=== PATIENT | female | born 1965 | race Caucasian/White ===

== ENCOUNTER 2024-07-26 12:59 | Day surgery (SDC) | payer BC ==
[2024-07-26 14:21] LABS: Glucose,Whole Blood 113 mg/dL (70-110)
[2024-07-26] MEDS: IV FLUID CONTINUATION 1,000 ML IV ONE (14:22)
[2024-07-26] MEDS: SODIUM CHLORIDE 0.9% 1,000 ML IV SCH (14:22)
[2024-07-26 14:31] LABS: Basophils # (A) 0.1 k/uL (0-0.2); Basophils % (A) 1 %; Eosinophils # (A) 0.2 k/uL (0-0.7); Eosinophils % (A) 2 %; HCT 41.9 % (34.0-46.0); Lymphocytes % (A) 31 %; MCH 29.7 pg (25.0-35.0); MCHC 33.5 g/dL (31.0-37.0); MCV 88.5 fL (80.0-100.0); Mean Platelet Volume 8.1; Monocytes # (A) 0.5 k/uL (0-1.0); Monocytes % (A) 5 %; Neutrophils # (A) 5.8 k/uL (1.3-7.7); Neutrophils % (A) 60 %; Platelet Count 401 k/uL (150-450); RBC 4.73 m/uL (3.80-5.40); RDW 12.9 % (11.5-15.5); WBC 9.7 k/uL (3.8-10.6)
[2024-07-26 14:36] LABS: African American GFR (CKD) >90 (>60 ml/min/1.73 sqM); Anion Gap 9 mmol/L; Blood Urea Nitrogen 20 mg/dL (7-17); Calcium 9.7 mg/dL (8.4-10.2); Carbon Dioxide 26 mmol/L (22-30); Chloride 105 mmol/L (98-107); Glucose 120 mg/dL (74-99); Non-African American GFR(CKD) >90 (>60 ml/min/1.73 sqM); Potassium 4.2 mmol/L (3.5-5.1); Sodium 140 mmol/L (137-145)
[2024-07-26] MEDS ORDERED: PROPOFOL 10 MG/ML 20 ML VIAL IV ONE (15:09)
[2024-07-26] MEDS ORDERED: fentaNYL (PF) 50 MCG/ML 2 ML AMP ONE (15:09)
[2024-07-26] MEDS ORDERED: MIDAZOLAM 2 MG/2 ML VIAL ONE (15:09)
[2024-07-26] MEDS ORDERED: PHENYLEPHRINE-0.9% NACL SYG 1,000 MCG/10 ML SYRINGE ONE (15:09)
[2024-07-26] MEDS: IOPAMIDOL-250 100ML BTL IVP ONE (15:20)
--- NOTE | 2024-07-26 15:27 | P.HPCAR ---
History of Present Illness This is Dr. Mendes dictating an H/P on this patient The patient was interviewed and examined IMPRESSION / ASSESSMENT: Nonischemic cardiomyopathy Congestive heart failure class II-III, systolic Chronic systolic heart failure On guideline directed medical treatment Left bundle branch block with a QRS width of 150 ms Nonischemic cardiomyopathy PLAN: Proceed with biventricular ICD implantation Continue heart failure medications and maximize beta-blockers further HPI Patient continues to have symptoms of heart failure class II-III with shortness of breath climbing stairs and now even on flat ground No syncope no palpitation ROS: No fever chills or rigors, no cough, phlegm or expectoration, no nausea, vomiting or diarrhea, no hematuria, dysuria, no musculoskeletal complaints, no strokes or seizures, no skin lesions. EXAMINATION: Pulse rate 75 beats minute afebrile, blood pressure 117/65 mmHg Heart sounds are normal Breath sounds are clear REVIEW OF LABS, ECG & MEDICAL DATA White count 9.7 thousand, hematocrit 41.9, platelet count 401,000 Electrolytes normal, kidney function normal Physical Exam Vitals: Vital Signs Temp Pulse Resp BP Pulse Ox 07/26/24 14:19 97.9 F 75 18 117/65 99 Intake and Output 07/26/24 07/26/24 07/26/24 06:59 14:59 22:59 Other: Weight 66.3 kg Past Medical History Past Medical History: Chest Pain / Angina, Heart Failure, Diabetes Mellitus, GERD/Reflux, Hyperlipidemia, Myocardial Infarction (SD) Additional Past Medical History / Comment(s): See Dr. Mendes's H+P, Type II NID DM. "From testing I've had doen they tell me I'v had a heart attack.""But they don't know the date of heart attack.". Kidney stones. Last Myocardial Infarction Date:: unknown History of Any Multi-Drug Resistant Organisms: None Reported Past Surgical History: Section, Cholecystectomy, Heart Catheterization, Orthopedic Surgery, Tonsillectomy Additional Past Surgical History / Comment(s): x2. Neck surgery with disc removal. Partial hysterectomy. Additional Past Anesthesia/Blood Transfusion Reaction / Comment(s): "My mom said as a child I had a hard time coming out of anethesia and hard time breathing." No hx of blood transfusion to date. Smoking Status: Former smoker - Past Family History Mother Additional Family Medical History / Comment(s): Cirrhosis of liver Father Family Medical History: Diabetes Mellitus, Myocardial Infarction (SD) Additional Family Medical History / Comment(s): CABG Physical Examination Vital Signs Temp Pulse Resp BP Pulse Ox 07/26/24 14:19 97.9 F 75 18 117/65 99 Intake and Output 07/26/24 07/26/24 07/26/24 06:59 14:59 22:59 Other: Weight 66.3 kg Results 07/26/24 14:00 07/26/24 14:00 CBC 07/26/24 Range/Units 14:00 WBC 9.7 (3.8-10.6) k/uL RBC 4.73 (3.80-5.40) m/uL Hgb 14.0 (11.4-16.0) gm/dL Hct 41.9 (34.0-46.0) % Plt Count 401 (150-450) k/uL Comprehensive Metabolic Panel 07/26/24 Range/Units 14:00 Sodium 140 (137-145) mmol/L Potassium 4.2 (3.5-5.1) mmol/L Chloride 105 (98-107) mmol/L Carbon Dioxide 26 (22-30) mmol/L BUN 20 H (7-17) mg/dL Creatinine 0.64 (0.52-1.04) mg/dL Glucose 120 H (74-99) mg/dL Calcium 9.7 (8.4-10.2) mg/dL Current Medications Generic Name Dose Route Start Last Admin Trade Name Freq PRN Reason Stop Dose Admin Sodium Chloride 1,000 mls @ 50 mls/hr 07/26/24 06:03 07/26/24 14:22 Saline 0.9% IV 08/25/24 06:02 50 mls/hr .Q20H GRACIELA Administration Sodium Chloride 1,000 mls @ 50 mls/hr 07/26/24 06:03 Saline 0.9% IV 08/25/24 06:02 .Q20H GRACIELA Cefazolin Sodium 2 gm/ Sodium 50 mls @ 100 mls/hr 07/26/24 07:00 Chloride IVPB 07/27/24 06:59 ONCE PRN Pre-Op Cefazolin Sodium 1 gm/ Sodium 250 mls @ 250 mls/hr 07/26/24 06:03 Chloride IRRIGATION 07/27/24 06:02 ONCE PRN PRE-OP Intake and Output 07/26/24 07/26/24 07/26/24 06:59 14:59 22:59 Other: Weight 66.3 kg Patient Weight 07/27/24 06:59 Weight 66.3 kg 07/26/24 14:00 07/26/24 14:00
[2024-07-26] MEDS: ceFAZolin 1 GM in SODIUM CHLORIDE 0.9% IRRIG BTL 250 ML IRRIGATION PRN (15:37)
[2024-07-26] MEDS: LIDOCAINE 1% INJ 10MG/ML (20 ML MDV) SQ ONE ×2 (15:41→15:55)
[2024-07-26] MEDS: ROPIVACAINE 5 MG/ML 30 ML VIAL MISCELLANE ONE (15:44)
[2024-07-26] MEDS ORDERED: ALPRAZolam 0.25 MG TAB PO PRN (17:39)
--- NOTE | 2024-07-26 17:56 | P.EPPROC ---
- EP Procedure Note Electrophysiology Procedure Note: Diagnosis Cardiomyopathy, chronic, nonischemic Congestive heart failure [place] [employer] class, class II-III Wide QRS, left bundle branch block pattern, QRS width 150 ms On guide line directed medical treatment for greater than 3 months Procedure: Biventricular ICD implantation for management of risk of sudden cardiac and congestive heart failure Result: Successful biventricular ICD implantation, Atrial lead: Mcclellan, pacing threshold 0.9 V at 0.5 ms, P waves greater than 5 mV and pacing impedance 690 ohms RV ICD lead: Mcclellan, pacing threshold 0.9 V at 0.5 ms R waves greater than 12 mV and pacing impedance 780 ohms Left ventricular lead: Anterolateral vein, excellent position. No diaphragmatic stimulation along this vein but high thresholds all throughout the vein. Best threshold M2-P4 and D1-coil. Pacing threshold M2-P4 is 3 V at 0.5 ms, pace impedance 880 ohms High-voltage impedance 74 ohms Procedure details: Patient was brought to the EP lab in a fasting state. Written informed consent was obtained prior to the procedure. Options, pros and cons, benefits and risks and complications discussed with patient in detail prior to the procedure (shared decision making) previously. Importance of continuing medical treatment emphasized previously. Alternatives discussed previously. Left upper extremity venogram performed. 15 mL IV dye injected in the left arm. Patent axillary/subclavian vein The left pectoral area was prepped and draped as a protocol. IV antibiotics administered 1% lidocaine was used for local anesthesia. A 4 cm incision was made parallel to the deltopectoral groove, about 1.5 cm medial to it. The incision was carried down to the level of the pectoralis muscle and the subfascial pocket was made. Hemostasis was assured. The axillary vein access was obtained. Appropriately sized into to see sheaths were placed. ICD lead implanted in the right ventricle septum and screwed in. ICD lead tested for threshold, sensing, impedances and tested with high output pacing for diaphragmatic stimulation. Negative diaphragmatic stimulation Atrial lead placed in the right atrial appendage and tested for threshold, sensing, impedance, and tested with high output pacing. Phrenic nerve stimulation negative Coronary sinus/left ventricular epicardial lead placement in the anterior lateral vein. Final distal lead position along the lateral wall and excellent position Leads secured to the underlying pectoral muscle after removing sheaths . Pocket irrigated with antibiotic solution. Antibiotic pouch placed Leads connected to the biventricular ICD generator. Wound closed in 3 layers and dressed per protocol Biventricular ICD interrogated and programmed. Appropriate pacing parameters, antitachycardia therapies with antitachycardia pacing cardioversion defibrillations programmed. AV delay and biventricular pacing parameters programmed to achieve optimal physiologic pacing AV delay 140 ms paced LV offset -55 ms Patient tolerated the procedure well without any acute complications. See scanned device report in EMR for lead details
[2024-07-26] MEDS: ACETAMINOPHEN IV (For NPO) 1,000 MG in EMPTY BAG 1 BAG IVPB ONE (19:48)
[2024-07-26] MEDS: NON FORMULARY DRUG (Tirzepatide [Mounjaro] 5 MG/0.5 ML Pen.Injctr) SQ SCH (19:49)
[2024-07-26] MEDS: GABAPENTIN 300 MG CAP PO SCH (20:03)
[2024-07-26] MEDS: ACETAMINOPHEN TAB 325 MG TAB PO PRN (20:03)
[2024-07-26] MEDS: SACUBITRIL/VALSARTAN 49 MG-51 MG TABLET PO SCH (20:03)
[2024-07-26] MEDS: ATORVASTATIN 20 MG TAB PO SCH (20:03)
[2024-07-27 03:51] VITALS: TEMP 98.4
[2024-07-27] MEDS: PANTOPRAZOLE 40 MG TABLET PO SCH (06:36)
[2024-07-27 07:53] VITALS: BP 106/66; PULSE 69; RESP 16
[2024-07-27] MEDS: SODIUM CHLORIDE 0.9% 1,000 ML IV SCH (08:08)
--- NOTE | 2024-07-27 08:51 | XR ---
EXAMINATION TYPE: XR chest 2V DATE OF EXAM: 07/27/2024 8:40 AM COMPARISON: None CLINICAL INDICATION: Female, 59 years old with history of Lead placement check, , TECHNIQUE: Frontal and lateral views FINDINGS: Left anterior chest wall AICD generator with right atrial, right ventricular, and coronary sinus lead s. Heart normal size. Mild interstitial prominence may be technical due to patient body habitus. No a ppreciable pneumothorax. No consolidation or pleural effusion. IMPRESSION: Left anterior chest wall AICD generator with right atrial, right ventricular, and coronary sinus lead s. No acute process seen. [facility], Workstation: [facility], 07/27/2024 8:49 AM
[2024-07-27] MEDS: SPIRONOLACTONE 25 MG TAB PO SCH (09:17)
[2024-07-27] MEDS: METOPROLOL SUCCINATE (ER) 50 MG TAB.ER.24H PO SCH (09:17)
[2024-07-27] MEDS: DAPAGLIFLOZIN PROPANEDIOL 10 MG TABLET PO SCH (09:17)
[2024-07-27] MEDS: FLUoxetine HCL 20 MG CAP PO SCH (09:17)
--- NOTE | 2024-07-27 16:00 | P.DS ---
Providers Attending physician: Omar Mendes [facility] Course: Patient is doing well. No chest discomfort dizziness lightheadedness or palpitations The ICD site is healed well no hematoma no swelling no soakage On examination blood pressure 106/66 mmHg pulse rate in the 60s and 70s afebrile Heart sounds are normal Breath sounds are clear Chest x-ray no pneumothorax. Leads in stable position LV lead in the anterolateral vein with the distal poles very lateral and posterior Impression Nonischemic cardiomyopathy with class II CHF and left bundle branch block with a QRS width 150 ms Twelve-lead EKG shows biventricular paced rhythm While the coronary veins had excellent caliber and lead placement was fairly straightforward, the thresholds in the lateral vein were relatively high. Yesterday the best threshold obtained was 3 V at 0.5 ms Today there was an improvement in LV threshold of 2.5 V at 0.5 ms Device interrogation within normal limits Assiduous biventricular ICD was implanted and is functioning normally Plan discharge home today Follow-up in the office with Dr. Choi Increase metoprolol succinate to 50 mg p.o. daily Plan - Discharge Summary Discharge Rx Participant: No New Discharge Prescriptions: New Metoprolol Succinate [Toprol XL] 50 mg PO DAILY #90 tab Discontinued Metoprolol Succinate (ER) [Toprol Xl] 25 mg PO QAM No Action Tirzepatide [Mounjaro] 5 mg SQ MO Gabapentin [Neurontin] 300 mg PO BID FLUoxetine HCL [PROzac] 40 mg PO QAM ALPRAZolam [Xanax] 0.25 mg PO QAM PRN PRN Reason: Anxiety Omeprazole [PriLOSEC] 20 mg PO AC-BRKFST Vit B6(Unknown Dose) 1 tab PO HS PRN PRN Reason: sleep metFORMIN HCL [Glucophage] 850 mg PO BID Spironolactone [Aldactone] 25 mg PO QAM Sacubitril/Valsartan [Entresto 49 mg-51 mg Tablet] 1 tab PO BID Rosuvastatin [Crestor] 1 tab PO MOWEFR Dapagliflozin Propanediol [Farxiga] 1 tab PO QAM Discharge Medication List ALPRAZolam [Xanax] 0.25 mg PO QAM PRN 07/20/24 [History] Dapagliflozin Propanediol [Farxiga] 1 tab PO QAM 07/20/24 [History] FLUoxetine HCL [PROzac] 40 mg PO QAM 07/20/24 [History] Gabapentin [Neurontin] 300 mg PO BID 07/20/24 [History] Omeprazole [PriLOSEC] 20 mg PO AC-BRKFST 07/20/24 [History] Rosuvastatin [Crestor] 1 tab PO MOWEFR 07/20/24 [History] Sacubitril/Valsartan [Entresto 49 mg-51 mg Tablet] 1 tab PO BID 07/20/24 [History] Spironolactone [Aldactone] 25 mg PO QAM 07/20/24 [History] Tirzepatide [Mounjaro] 5 mg SQ MO 07/20/24 [History] Vit B6(Unknown Dose) 1 tab PO HS PRN 07/20/24 [History] metFORMIN HCL [Glucophage] 850 mg PO BID 07/20/24 [History] Metoprolol Succinate [Toprol XL] 50 mg PO DAILY #90 tab 07/26/24 [Rx] Follow up Appointment(s)/Referral(s): Soheila Choi MD [STAFF PHYSICIAN] - 08/02/24 4:00 pm Patient Instructions/Handouts: Pacemaker (DC) Activity/Diet/Wound Care/Special Instructions: PATIENT EDUCATION MATERIAL Instructions following a heart rhythm device implant. 1. Keep dressing DRY for 5 DAYS. You may cover the area with Saran or Cling Wrap, prior to a shower. 2. The dressing will be removed in the Device Clinic at [facility]. Absorbable sutures were used to close the wound. 3. Avoid raising the left arm above the shoulder level. 4 week restriction 4. Avoid arm movements, like backscratching, rubbing the head, or pulling on a cord. 4 weeks restriction 5. Gentle range of motion movements of the shoulder, closest to the incision should be performed to avoid a frozen shoulder. (Pendulum exercises of the shoulder) 6. The opposite arm may be used freely. 7. Avoid driving for 7 days. 8. Avoid activities such as golfing, swimming, weed whacking, lifting more than 10 pounds weight, bowling, gymnastics and weight training/lifting. (6 weeks restriction) 9. Activities such as wood chopping with an axe, pull-ups in the gymnasium, power lifting, arc-welding, being close to home induction cooktops will always be a problem. 10. Arm sling is only a reminder not to raise the arm above the head. You do not need to keep the arm completely immobilized. Your free to move the arm and use it and for normal activities. In case of any problems, please call [facility] [place], @ [phone], Attention: Device Clinic Device clinic follow-up in 5 days Follow-up with primary clinical faculty in 2-3 months Discharge Disposition: HOME SELF-CARE
[2024-07-28] MEDS ORDERED: metFORMIN 850 MG TAB PO SCH (07:30)
== END 2024-07-27 11:32 | disposition home or self-care (01) ==
LOC: CATHEP 12:59 → 6NMEDSUR 17:25 → CATHEP 07-27 11:32
PROVIDERS: ATTEND Internal Medicine Clinical Cardiac Electrophysiology
DX: I25.10 Atherosclerotic heart disease of native coronary artery without angina pectoris (principal); I50.22 Chronic systolic (congestive) heart failure; E11.9 Type 2 diabetes mellitus without complications; E78.5 Hyperlipidemia, unspecified; K21.9 Gastro-esophageal reflux disease without esophagitis; N20.0 Calculus of kidney; I25.2 Old myocardial infarction; Z87.442 Personal history of urinary calculi; Z45.02 Encounter for adjustment and management of automatic implantable cardiac defibrillator; Z90.89 Acquired absence of other organs; Z90.49 Acquired absence of other specified parts of digestive tract; Z87.891 Personal history of nicotine dependence; Z83.79 Family history of other diseases of the digestive system; Z83.3 Family history of diabetes mellitus; Z82.49 Family history of ischemic heart disease and other diseases of the circulatory system; Z79.82 Long term (current) use of aspirin; Z88.2 Allergy status to sulfonamides; L23.1 Allergic contact dermatitis due to adhesives; Z88.8 Allergy status to other drugs, medicaments and biological substances; Z79.899 Other long term (current) drug therapy
CPT/HCPCS: 33249; 33225; 80048; 85025; 71046; C1769 ×4; C1882; C1898; C1892 ×2; C1730; C1887; C1900; C1777; J2250; J0690 ×2; J2003; J3010; J2795; J2704; Q9966; J2371

== ENCOUNTER 2024-10-21 07:25 | Day surgery (SDC) | payer BC ==
[2024-10-18 11:44] VITALS: BMI 27.3
[2024-10-21 07:54] LABS: Glucose,Whole Blood 151 mg/dL (70-110)
[2024-10-21 08:06] VITALS: RESP 16; TEMP 97.8
[2024-10-21] MEDS: SODIUM CHLORIDE 0.9% 1,000 ML IV SCH (08:07)
[2024-10-21 08:10] LABS: African American GFR (CKD) >90 (>60 ml/min/1.73 sqM); Anion Gap 12 mmol/L; Blood Urea Nitrogen 20 mg/dL (7-17); Calcium 9.7 mg/dL (8.4-10.2); Carbon Dioxide 22 mmol/L (22-30); Chloride 101 mmol/L (98-107); Glucose 167 mg/dL (74-99); Non-African American GFR(CKD) >90 (>60 ml/min/1.73 sqM); Potassium 4.2 mmol/L (3.5-5.1); Sodium 135 mmol/L (137-145)
[2024-10-21] MEDS ORDERED: LIDOCAINE 1% INJ 10MG/ML (20 ML MDV) ONE (09:27)
[2024-10-21] MEDS ORDERED: PROPOFOL 10 MG/ML 20 ML VIAL IV ONE (09:27)
[2024-10-21] MEDS: IV FLUID CONTINUATION 400 ML IV ONE (09:31)
--- NOTE | 2024-10-21 10:10 | P.EPPROC ---
- EP Procedure Note Electrophysiology Procedure Note: Indication: Nonischemic cardiomyopathy status post BiV ICD implant, [place] heart failure, Mcclellan device Final diagnosis Biventricular ICD functioning normally, LV offset 55 ms Mildly chronically elevated LV, thresholds but improved since implant Defibrillation successful with 10 J, anode, high-voltage impedance 69 ohms, charge time 1.8 seconds Details Under conscious sedation the Mcclellan [place] heart failure biventricular ICD was interrogated Atrial pacing threshold 0.5 V at 0.5 ms, R waves greater than 5 mV, pace impedance 510 ohms RV pacing threshold 0.5 V at 0.5 ms, R waves greater than 12 mV and pace impedance 790 ohms LV threshold improved to 2.2 V at 0.5 ms, M2-P4, pacing impedance 940 ohms High-voltage impedance 69 ohms Ventricular fibrillation induced, detected with 8 dropouts intermittently, successfully internally defibrillated with a 10 J shock, anode Charge time 1.8 seconds High-voltage impedance 69 ohms Device reprogrammed, first cardioversion 20 J first defibrillation 36 J Appropriate antitachycardia pacing cardioversion and defibrillation programmed BiV pacing with a short AV delay and LV offset of 55 ms
[2024-10-21 12:32] VITALS: PULSE 84
[2024-10-21 12:36] VITALS: BP 110/68
== END 2024-10-21 11:08 | disposition home or self-care (01) ==
LOC: CATHEP 07:25
PROVIDERS: ATTEND Internal Medicine Clinical Cardiac Electrophysiology
DX: I42.8 Other cardiomyopathies (principal); I50.22 Chronic systolic (congestive) heart failure; Z45.02 Encounter for adjustment and management of automatic implantable cardiac defibrillator; I49.01 Ventricular fibrillation; Z95.810 Presence of automatic (implantable) cardiac defibrillator
CPT/HCPCS: 93642; 80048; J2003; J2704